=== PATIENT | female | born 1945 | race Caucasian/White ===

== ENCOUNTER → 2017-02-14 | Outpatient (CLI) | payer MEDICARE, BC | LOC: KOH-I 15:07 | DX: R07.9 Chest pain, unspecified (principal) | CPT/HCPCS: 71020; 71100 ==

== ENCOUNTER → 2021-05-31 | Outpatient (CLI) | payer MEDICARE | LOC: HEART 5 14:23 | DX: R00.2 Palpitations (principal) ==

== ENCOUNTER → 2021-06-12 | Outpatient (CLI) | payer MEDICARE | LOC: EXRD 10:56 | DX: M79.641 Pain in right hand (principal); M79.642 Pain in left hand; G89.29 Other chronic pain; M19.042 Primary osteoarthritis, left hand; M19.041 Primary osteoarthritis, right hand; M85.842 Other specified disorders of bone density and structure, left hand; M85.841 Other specified disorders of bone density and structure, right hand; M25.741 Osteophyte, right hand | CPT/HCPCS: 73130 ==

== ENCOUNTER → 2021-07-17 | Outpatient (CLI) | payer MEDICARE | LOC: KOH-I 10:18 | DX: M25.511 Pain in right shoulder (principal); G89.29 Other chronic pain; M67.813 Other specified disorders of tendon, right shoulder; M19.011 Primary osteoarthritis, right shoulder | CPT/HCPCS: 73221 ==

== ENCOUNTER → 2022-04-19 | Outpatient (CLI) | payer MEDICARE | LOC: KOH-I 12:33 | DX: M51.16 Intervertebral disc disorders with radiculopathy, lumbar region (principal); M48.061 Spinal stenosis, lumbar region without neurogenic claudication | CPT/HCPCS: 72148 ==

== ENCOUNTER → 2022-06-22 | Outpatient (CLI) | payer MEDICARE | LOC: LAB 16:30 | DX: H53.121 Transient visual loss, right eye (principal) | CPT/HCPCS: 36415; 82565; 84520; 85652; 86140 ==

== ENCOUNTER 2022-06-27 09:36 | Emergency (ER) | payer MEDICARE ==
[2022-06-27 10:47] LABS: HEMOGLOBIN 11.1 gm/dl (12.3-15.3); RED BLOOD COUNT 3.32 M/UL (4.00-5.10); WHITE BLOOD COUNT 6.1 K/UL (4.5-11.0)
== END 2022-06-27 16:00 | disposition short-term general hospital (02) ==
LOC: ER1 09:36
PROVIDERS: Family Medicine
DX: I82.411 Acute embolism and thrombosis of right femoral vein (principal); R06.00 Dyspnea, unspecified; R00.1 Bradycardia, unspecified; R07.89 Other chest pain; Z20.822 Contact with and (suspected) exposure to COVID-19; E11.9 Type 2 diabetes mellitus without complications; I10 Essential (primary) hypertension; Z79.84 Long term (current) use of oral hypoglycemic drugs; Z79.82 Long term (current) use of aspirin
CPT/HCPCS: 0240U; 71045; 80053; 82550; 82553; 82962; 83605; 83880; 84439; 84443; 84484; 85025; 85610; 93005; 93971; 99285

== ENCOUNTER → 2022-07-13 | Outpatient (CLI) | payer MEDICARE | LOC: US 09:59 | DX: H53.121 Transient visual loss, right eye (principal); I65.23 Occlusion and stenosis of bilateral carotid arteries | CPT/HCPCS: 93880 ==